=== PATIENT | male | born 1965 | race American Indian/Alaskan Native ===

== ENCOUNTER 2019-01-15 14:00 | Emergency (ER) | payer MEDICAID ==
[~2019-01-15] VITALS: Ht 172.7 cm; Wt 97.7 kg
[~2019-01-15 14:00] MED LIST: CEPH-572 PO; METH-603 PO; NAPR220T67 PO; SULF1TAB49 PO
[2019-01-15 14:07] VITALS: BP 138/81
[2019-01-15] MEDS ORDERED: TETanus/Pertussis (Acell)/Diphther VAC/PF (Tdap-Adult) 0.5ml syringe IM ONE (14:45)
[2019-01-15] MEDS ORDERED: LIDOcaine 1% w/EPI 1:200,000 injection 10mL vial IM ONE (14:45)
[2019-01-15] MEDS ORDERED: LIDOcaine 1% W/epiNEPHrine 1:200,000 10ml vial IJ ONE (14:50)
[2019-01-15] MEDS ORDERED: CEPH-572 PO (15:17)
== END 2019-01-15 15:54 | disposition home or self-care (01) ==
LOC: ER 14:01
DX: S61.211A Laceration without foreign body of left index finger without damage to nail, initial encounter (principal); L03.012 Cellulitis of left finger; G89.29 Other chronic pain; Z88.0 Allergy status to penicillin; Z88.1 Allergy status to other antibiotic agents; Z79.2 Long term (current) use of antibiotics; Z79.899 Other long term (current) drug therapy; Z56.0 Unemployment, unspecified; Z98.890 Other specified postprocedural states; W22.8XXA Striking against or struck by other objects, initial encounter; Y93.89 Activity, other specified; Y92.89 Other specified places as the place of occurrence of the external cause; Y99.8 Other external cause status
CPT/HCPCS: 99283

== ENCOUNTER 2019-03-30 13:18 | Emergency (ER) | payer MEDICAID ==
[~2019-03-30] VITALS: Ht 172.7 cm; Wt 100.0 kg
[2019-03-30] MEDS ORDERED: ACYC-202 PO (14:46)
[2019-03-30] MEDS ORDERED: ACYC5CRE2 TP (14:46)
[2019-03-30] MEDS ORDERED: SULF1TAB49 PO (14:49)
[2019-03-30 15:00] VITALS: BP 150/83
== END 2019-03-30 15:01 | disposition home or self-care (01) ==
LOC: ER 13:18
DX: S01.80XA Unspecified open wound of other part of head, initial encounter (principal); L02.01 Cutaneous abscess of face; B02.9 Zoster without complications; G89.29 Other chronic pain; Z98.890 Other specified postprocedural states; Z56.0 Unemployment, unspecified; Z88.1 Allergy status to other antibiotic agents; Z88.0 Allergy status to penicillin; Z88.5 Allergy status to narcotic agent; Z91.018 Allergy to other foods; Z79.899 Other long term (current) drug therapy; X58.XXXA Exposure to other specified factors, initial encounter; Y93.89 Activity, other specified; Y92.89 Other specified places as the place of occurrence of the external cause; Y99.8 Other external cause status
CPT/HCPCS: 99283

== ENCOUNTER 2019-05-01 12:28 | Outpatient (CLI) | payer MEDICAID | END 2019-05-01 23:59 | disposition home or self-care (01) | LOC: RAD 12:28 | PROVIDERS: ATTEND Obstetrics & Gynecology | DX: F11.20 Opioid dependence, uncomplicated (principal) | CPT/HCPCS: 93005 ==

== ENCOUNTER 2021-05-03 11:35 | Outpatient (CLI) | payer MEDICAID | END 2021-05-03 23:59 | disposition home or self-care (01) | LOC: LAB 11:35 | DX: F11.20 Opioid dependence, uncomplicated (principal) | CPT/HCPCS: 93005 ==

== ENCOUNTER 2021-09-27 17:26 | Emergency (ER) | payer MEDICAID ==
[~2021-09-27] VITALS: Ht 172.7 cm; Wt 102.3 kg
[2021-09-27 18:08] VITALS: BP 148/86
[2021-09-27 18:26] LABS: CLARITY,URINE CLOUDY (Clear); COLOR,URINE YELLOW (Yellow); GLUCOSE, URINE NEGATIVE (Neg); KETONES,URINE NEGATIVE (Neg); LEUKOCYTE ESTERASE ,URINE NEGATIVE (Neg); NITRITES, URINE NEGATIVE (Neg); OCCULT BLOOD,URINE LARGE (Neg); PROTEIN,URINE 30 mg/dl (Neg); UROBILINOGEN,URINE 0.2 E.U/dL (0.2-1.0)
[2021-09-27 18:38] LABS: UA COLLECTION TYPE VOIDED
[2021-09-27 18:45] LABS: BACTERIA,URINE 1+ /HPF (Neg); RBC,URINE TNTC /HPF (0-2)
[2021-09-27 18:46] LABS: MUCUS STRANDS FEW /LPF (Neg); SQUAMOUS EPITHELIAL CELL,UR FEW /LPF (FEW); TRANSITIONAL EPI CELLS,URINE FEW /HPF; WBC,URINE 20-30 /HPF (0-4)
[2021-09-27] MEDS ORDERED: ciprofloxacin 250mg tablet PO ONE (18:50)
[2021-09-27] MEDS ORDERED: CIPR-259 PO (18:51)
--- NOTE | 2021-09-27 18:54 | NUR ---
po med given
== END 2021-09-27 19:07 | disposition home or self-care (01) ==
LOC: ER 17:27
DX: N39.0 Urinary tract infection, site not specified (principal); G89.29 Other chronic pain; M54.50 Low back pain, unspecified; Z88.0 Allergy status to penicillin; Z88.5 Allergy status to narcotic agent; Z91.041 Radiographic dye allergy status; Z91.018 Allergy to other foods; Z56.0 Unemployment, unspecified
CPT/HCPCS: 81001; 87088; 99283

== ENCOUNTER 2023-07-15 00:24 | Emergency (ER) | payer MEDICAID ==
[~2023-07-15] VITALS: Ht 172.7 cm; Wt 88.6 kg
[2023-07-15 00:25] VITALS: BP 183/90; PULSE 76; RESP 16; TEMP 98; O2SAT 98
[2023-07-15 02:33] LABS: BASOPHILS # (AUTO) 0.1 X10'3 (0-0.2); BASOPHILS % (AUTO) 0.5 % (0-1); EOSINOPHILS % (AUTO) 0.3 % (0-6); HEMATOCRIT 39.2 % (42.0-52.0); HEMOGLOBIN 13.1 g/dl (14.0-17.9); LYMPHOCYTES # (AUTO) 1.6 X10'3 (1.1-4.8); MEAN CORPUSCULAR HEMOGLOBIN 27.3 PG (27.0-31.0); MEAN CORPUSCULAR HGB CONC 33.4 g/dL (33.0-36.5); MEAN CORPUSCULAR VOLUME 81.8 FL (78-98); MEAN PLATELET VOLUME 7.5 FL (7.4-10.4); MONOCYTES # (AUTO) 0.7 X10'3 (0-0.9); MONOCYTES % (AUTO) 4.7 % (2-12); NEUTROPHILS # (AUTO) 11.8 X10'3 (1.8-7.7); NEUTROPHILS % (AUTO) 83.5 % (42-75); PLATELET COUNT 367 X10'3 (140-440); RED CELL DISTRIBUTION WIDTH 14.3 % (11.5-14.5); WHITE BLOOD COUNT 14.1 X10'3 (4.5-11.0)
[2023-07-15 03:15] LABS: ALBUMIN 3.5 G/DL (3.4-5.0); ANION GAP 14 (8-16); BLOOD UREA NITROGEN 25 MG/DL (7-18); BUN/CREATININE RATIO 16.6 (10.0-20.0); CALCIUM 9.5 MG/DL (8.5-10.1); CHLORIDE 102 MMOL/L (99-107); CREATININE 1.51 MG/DL (0.60-1.10); GLUCOSE 118 MG/DL (70-104); POTASSIUM 4.1 MMOL/L (3.5-5.1); SODIUM 141 MMOL/L (135-145); TOTAL CARBON DIOXIDE 25.2 MMOL/L (24-32); eCRCL 53 ML/MIN; eGFR 48 ML/MIN
== END 2023-07-15 03:59 | disposition left against medical advice (07) ==
LOC: ER 00:25
DX: R10.9 Unspecified abdominal pain (principal); Z91.041 Radiographic dye allergy status; Z88.0 Allergy status to penicillin; Z91.018 Allergy to other foods; Z79.2 Long term (current) use of antibiotics; Z79.899 Other long term (current) drug therapy
CPT/HCPCS: 36415; 74018; 80048; 85025; 99284